=== PATIENT | male | born 1975 | race Caucasian/White ===

== ENCOUNTER 2019-08-09 21:29 | Emergency (ER) | payer OTHER ==
[2019-08-09] MEDS ORDERED: SODIUM CHLORIDE 0.9% 1,000 ML IV STA (21:37)
[2019-08-09] MEDS ORDERED: MORPHINE SULFATE 4 MG/ML SYRINGE IV STA (21:38)
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
--- NOTE | 2019-08-09 21:56 | XR ---
EXAMINATION TYPE: XR chest 1V portable DATE OF EXAM: 08/09/2019 COMPARISON: NONE HISTORY: Pain TECHNIQUE: Single view FINDINGS: Heart and mediastinum are normal. Lungs are clear. Diaphragm is normal. There is oblique fr acture of the mid shaft of the right clavicle with 50% displacement. There is no evidence of pneumoth orax. There is probably an old lower lateral right rib fracture. IMPRESSION: No active cardiomegaly disease. Right clavicle fracture.
--- NOTE | 2019-08-09 22:00 | XR ---
EXAMINATION TYPE: XR pelvis AP view DATE OF EXAM: 08/09/2019 COMPARISON: NONE HISTORY: Pain TECHNIQUE: Single view FINDINGS: Pelvic ring is intact. Proximal femurs and hip joints are intact. Sacroiliac joints appear normal. There is no sign of hip dysplasia. IMPRESSION: Normal exam. No fracture seen.
[2019-08-09 22:02] LABS: Basophils % (A) 1 %; Eosinophils # (A) 0.1 k/uL (0-0.7); Eosinophils % (A) 2 %; HCT 40.7 % (39.0-53.0); HGB 13.2 gm/dL (13.0-17.5); Lymphocytes % (A) 30 %; MCH 28.6 pg (25.0-35.0); MCHC 32.5 g/dL (31.0-37.0); Mean Platelet Volume 7.1; Monocytes # (A) 0.3 k/uL (0-1.0); Monocytes % (A) 4 %; Neutrophils # (A) 4.1 k/uL (1.3-7.7); Neutrophils % (A) 61 %; Platelet Count 226 k/uL (150-450); RBC 4.62 m/uL (4.30-5.90); RDW 13.1 % (11.5-15.5); WBC 6.7 k/uL (3.8-10.6)
[2019-08-09 22:04] LABS: Calcium 8.5 mg/dL (8.4-10.2); Potassium 4.1 mmol/L (3.5-5.1); Total Bilirubin 0.4 mg/dL (0.2-1.3); Total Protein 6.4 g/dL (6.3-8.2)
[2019-08-09 22:05] LABS: Creatine Kinase 202 U/L (55-170)
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
[2019-08-09 22:13] LABS: Prothrombin Time 10.1 sec (9.0-12.0)
[2019-08-09 22:14] LABS: Partial Thromboplastin Time 19.4 sec (22.0-30.0)
[2019-08-09 22:18] LABS: Troponin I <0.012 ng/mL (0.000-0.034)
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
[2019-08-09] MEDS ORDERED: LIDOCAINE 1%-EPI 1:100,000 20 ML VIAL SQ STA (22:33)
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
--- NOTE | 2019-08-09 22:55 | XR ---
EXAMINATION TYPE: XR shoulder complete LT DATE OF EXAM: 08/09/2019 COMPARISON: NONE HISTORY: Shoulder pain TECHNIQUE: 3 views FINDINGS: I see no fracture nor dislocation. Joint spaces are normal. There are no pathologic calcifi cations. IMPRESSION: Negative left shoulder exam.
[2019-08-09] MEDS ORDERED: LIDOCAINE 1% INJ 10MG/ML (20 ML MDV) SQ ONE (23:38)
[2019-08-10] MEDS ORDERED: MORPHINE SULFATE 4 MG/ML SYRINGE IV STA (00:13)
[2019-08-10] MEDS ORDERED: LIDOCAINE 5% PATCH TOPICAL STA (00:28)
[2019-08-10] MEDS ORDERED: ACET/COD 300 MG/30 MG STARTER PACK 6 TAB BTL PO STA (00:28)
== END 2019-08-10 01:15 ==
LOC: EC 21:29
DX: S22.41XA Multiple fractures of ribs, right side, initial encounter for closed fracture (principal); S42.001A Fracture of unspecified part of right clavicle, initial encounter for closed fracture; S61.213A Laceration without foreign body of left middle finger without damage to nail, initial encounter; S62.305A Unspecified fracture of fourth metacarpal bone, left hand, initial encounter for closed fracture; S01.01XA Laceration without foreign body of scalp, initial encounter; R74.0 Nonspecific elevation of levels of transaminase and lactic acid dehydrogenase [LDH]; E87.2 Acidosis; Y90.5 Blood alcohol level of 100-119 mg/100 ml; R11.0 Nausea; V29.40XA Motorcycle driver injured in collision with unspecified motor vehicles in traffic accident, initial encounter; Y92.410 Unspecified street and highway as the place of occurrence of the external cause
CPT/HCPCS: 36415; 93005; 86900; 86901; 80053; 82150; 82550; 82553; 83605; 83690; 84484; 85025; 85610; 85730; 86850; 80320; 72170; 73030; 73130; 71045; 72125; 70450; 71260; 74177; 12006; 99285; 96374; 96376; 96361; J2270; J2001; Q9967